=== PATIENT | male | born 1945 | race Hispanic/Latino ===

== ENCOUNTER 2021-08-14 22:28 | Emergency (ER) | payer OTHER, MEDICARE ==
[~2021-08-14] VITALS: Ht 162.6 cm; Wt 90.7 kg
[~2021-08-14 22:28] MED LIST: CLOPIDOGREL75 MG PO; HYDRALAZINE HCL50 MG PO; MATZIM LA240 MG PO; MECLIZINE HCL12.5 MG PO; METFORMIN HCL500 MG PO; PRAVASTATIN SOD40 MG PO; TIKOSYN125 MCG PO; TRIAMTERENE-HCTZ1 EA PO; ZESTRIL20 MG PO
== END 2021-08-15 00:34 | disposition home or self-care (01) ==
LOC: ER 22:38
DX: S91.214A Laceration without foreign body of right lesser toe(s) with damage to nail, initial encounter (principal); W22.09XA Striking against other stationary object, initial encounter; Y93.01 Activity, walking, marching and hiking; Y92.008 Other place in unspecified non-institutional (private) residence as the place of occurrence of the external cause; I10 Essential (primary) hypertension; E11.9 Type 2 diabetes mellitus without complications; E78.5 Hyperlipidemia, unspecified; I48.91 Unspecified atrial fibrillation
CPT/HCPCS: 99283